=== PATIENT | female | born 1990 | race Hispanic/Latino ===

== ENCOUNTER 2019-03-30 11:58 | Inpatient (IN) | payer BC ==
[2019-03-30] MEDS ORDERED: Ondansetron PF 4 MG/2 ML Vial IVP PRN ×2 (12:17→21:36)
[2019-03-30] MEDS ORDERED: Butorphanol Tartrate 1 MG/ML VIAL SLOW IVP PRN (12:17)
[2019-03-30] MEDS ORDERED: Carboprost 250 MCG/ML AMP IM PRN (12:17)
[2019-03-30] MEDS ORDERED: Acetaminophen 500 MG TAB PO PRN (12:17)
[2019-03-30] MEDS ORDERED: HYDROcodone/Acetaminophen 5/325 mg Tablet PO PRN ×4 (12:17→21:36)
[2019-03-30] MEDS ORDERED: Docusate 100 MG CAP PO PRN (12:17)
[2019-03-30] MEDS ORDERED: Misoprostol 200 MCG TAB PR PRN (12:17)
[2019-03-30] MEDS ORDERED: Lidocaine 1% (PF) 30 ML VIAL SC PRN (12:17)
[2019-03-30] MEDS ORDERED: Promethazine HCl 25 MG/ML VIAL IM PRN ×2 (12:17→21:36)
[2019-03-30] MEDS ORDERED: Zolpidem Tartrate 5 MG TAB PO PRN ×2 (12:17→21:36)
[2019-03-30] MEDS ORDERED: hydrALAZINE 20 MG/ML VIAL SLOW IVP PRN ×2 (12:17→21:36)
[2019-03-30] MEDS ORDERED: Ibuprofen 800 MG TAB PO PRN (12:17)
[2019-03-30] MEDS ORDERED: Diphenoxylate HCl/Atropine Tablet PO PRN ×2 (12:17)
[2019-03-30] MEDS ORDERED: Methylergonovine 0.2 MG/ML VIAL IM PRN ×2 (12:17→21:36)
--- NOTE | 2019-03-30 12:23 | PDOC.LDHP ---
Labor and Delivery H&P HPI: 28 y/o at 38 weeks and 6/7 who presents to clinic with cervical dilitation of 4-5 cm and irregular contractions/pressure. Patient lives in [place], [place]. Will admit for early labor. Epidural not desired. GBS Neg. Current gestational age (weeks): 38 Due date: 04/07/19 Grav: 4 Para: 2 Current complications: none Abnormal US findings: No Current medications: pre-taylor vitamins Previous surgical history: none Social history: none - Physical Exam Vital signs reviewed and normal: yes General: NAD, resting Heart: RRR Lungs: CTAB Abdomen: gravid Extremeties: no edema FHT: category 1 - Assessment L&D Assessment: term patient in labor - Plan Plan: admit to L&D
[2019-03-30] MEDS ORDERED: NS w/ Oxytocin 10 units 500 ML IV SCH ×2 (12:30)
[2019-03-30 13:04] VITALS: BMI 28.3
[2019-03-30] MEDS: Lactated Ringer's 1,000 ML IV SCH ×2 (17:37→18:17)
[2019-03-30 18:05] LABS: Hemoglobin 10.3 g/dL (12.0-16.0); Mean Corpuscular Hemoglobin 27.3 pg (27.0-31.0); Mean Corpuscular Volume 80.4 fL (78.0-98.0); Mean Platelet Volume 10.5 fL (7.4-10.4); Platelet Count 233 thou/uL (130-400); RBC Distribution Width 13.6 % (11.5-14.5); Red Blood Cell (RBC) Count 3.78 mill/uL (4.20-5.40); White Blood Cell (WBC) Count 13.2 thou/uL (4.8-10.8)
[2019-03-30 18:37] LABS: Hep B Surf Ag Non-Reactive S/CO (NonReactive); Syphilis Antibody Nonreactive (Nonreactive); Syphilis Antibody Index 0.04 S/CO (<1.00 Non-Reactive)
[2019-03-30] MEDS: NS / Oxytocin 40 units/1000ml 1,000 ML IV PRN ×2 (19:12→20:35)
[2019-03-30] MEDS ORDERED: Bisacodyl 10 MG SUPP PR PRN (21:36)
[2019-03-30] MEDS ORDERED: diphenhydrAMINE 25 MG CAP PO PRN (21:36)
[2019-03-30] MEDS ORDERED: Lanolin Ointment 7 GM TUBE TOP PRN (21:36)
[2019-03-30] MEDS ORDERED: Benzocaine-Menthol 82.5 ML CAN TOP PRN (21:36)
[2019-03-30] MEDS ORDERED: Milk Of Magnesia 30 ML UDCUP PO PRN (21:36)
[2019-03-30] MEDS ORDERED: Misoprostol 200 MCG TAB VAG PRN (21:36)
[2019-03-30] MEDS ORDERED: NS / Oxytocin 40 units/1000ml 1,000 ML IV SCH (21:36)
[2019-03-30] MEDS ORDERED: Preparation H Ointment 57 gram tube RC PRN (21:36)
[2019-03-30] MEDS ORDERED: Docusate Calcium (SURFAK) 240 MG CAP PO SCH (21:45)
[2019-03-30] MEDS: Ibuprofen 800 MG TAB PO SCH (23:02)
[2019-03-31] MEDS: Ibuprofen 800 MG TAB PO SCH ×3 (05:23→21:34)
[2019-03-31 05:52] LABS: Hemoglobin 8.7 g/dL (12.0-16.0); Mean Corpuscular HGB CONC 34.5 g/dL (32.0-36.0); Mean Corpuscular Hemoglobin 27.9 pg (27.0-31.0); Mean Corpuscular Volume 80.9 fL (78.0-98.0); Mean Platelet Volume 10.7 fL (7.4-10.4); Platelet Count 188 thou/uL (130-400); RBC Distribution Width 13.6 % (11.5-14.5); Red Blood Cell (RBC) Count 3.11 mill/uL (4.20-5.40); White Blood Cell (WBC) Count 14.9 thou/uL (4.8-10.8)
[2019-03-31] MEDS ORDERED: Varicella virus, LIVE 0.5 ML VIAL SC ONE (09:00)
[2019-03-31] MEDS ORDERED: Adacel (T-DAP) 0.5 ML SYRINGE IM ONE (09:00)
[2019-03-31] MEDS ORDERED: Measles/Mumps/Rubella 10 MCG/0.5 ML VIAL SC ONE (09:00)
[2019-03-31] MEDS: Prenatal Vitamin 1 TAB PO SCH (09:17)
[2019-03-31] MEDS: Docusate Calcium (SURFAK) 240 MG CAP PO SCH ×2 (09:17→21:33)
[2019-03-31] MEDS: Ferrous Sulfate 325 MG TAB PO SCH ×2 (09:17→17:50)
--- NOTE | 2019-03-31 19:47 | PDOC.PP ---
Post Progress Note Post Day #: 1 PO intake tolerated: yes Flatus: yes Ambulation: yes Vital Signs (12 hours) Temp Pulse Resp BP Pulse Ox 03/31/19 17:17 99.0 F 83 12 121/56 L 98 03/31/19 11:46 98.7 F 80 20 112/59 L 03/31/19 08:26 98.2 F 60 20 130/72 95 Weight Weight 160 lb - Physical Examination General: NAD Cardiovascular: no m/r/g, RRR Respiratory: clear to auscultation bilaterally, non-labored breathing Abdominal: + bowel sounds, lochia, no distention, appropriately TTP Extremities: negative homans (B) Skin: CS incision dry & intact, no rash Neurological: no gross focal deficits Psychiatric: A&Ox3, normal affect (DC tomorrow) Result Diagrams: 03/31/19 05:34 Additional Labs: Post Labs Blood Type O POSITIVE 03/30/19 17:55 Hep Bs Antigen Non-Reactive S/CO (NonReactive) 03/30/19 17:41
[2019-04-01 00:13] VITALS: BP 117/67
--- NOTE | 2019-04-01 00:52 | DN ---
DATE OF PROCEDURE: 03/30/2019 TIME OF SERVICE: 1902 Central Standard Time. PREOPERATIVE DIAGNOSIS: Intrauterine at 38 weeks and 6 days with spontaneous onset of labor. POSTOPERATIVE DIAGNOSIS: Intrauterine at 38 weeks and 6 days with spontaneous onset of labor. PROCEDURE PERFORMED: Spontaneous vaginal delivery over first-degree laceration of the perineum. FINDINGS: Viable male infant, weighing 3314 g or 7 pounds 5 ounces. Apgars of 9 and 9. QUANTITATIVE BLOOD LOSS: 119 mL. COMPLICATIONS: None. PROCEDURE IN DETAIL: The patient presented to [facility] where she was admitted to the labor and delivery service. The patient underwent a normal and uneventful labor with normal cervical dilatation until she was found to be completely dilated. She was then allowed to push and was able to bring the baby down and delivered the baby in a vertex presentation without difficulties. Once the head delivered in occiput anterior position, the shoulders followed spontaneously along with the rest of the baby's body. Once out the baby's mouth and nose were bulb suctioned. The cord was clamped and cut and baby was handed to waiting attendants. Cord blood was collected. Gentle fundal massage was performed and the placenta delivered intact without problems. Hemostasis was assured. Quantitative blood loss was calculated. Inspection of the cervix, vaginal vault, and perineum did not reveal any lacerations needing suturing. Once again, hemostasis was within normal limits and the patient was allowed to recover in the labor and delivery room. Baby went to nursery. Job ID: [id number]
[2019-04-01] MEDS: Ibuprofen 800 MG TAB PO SCH ×2 (05:24→14:38)
[2019-04-01] MEDS: Docusate Calcium (SURFAK) 240 MG CAP PO SCH (08:08)
[2019-04-01] MEDS: Ferrous Sulfate 325 MG TAB PO SCH (08:08)
[2019-04-01] MEDS: Prenatal Vitamin 1 TAB PO SCH (08:08)
[2019-04-01 08:20] VITALS: TEMP 97.9
== END 2019-04-01 17:00 | disposition home or self-care (01) | DRG 807 ==
LOC: L&D/OP 11:58 → L&D 19:12 → 3SW 22:10
PROVIDERS: ADMIT Obstetrics & Gynecology; ATTEND Obstetrics & Gynecology
PROC: 10E0XZZ Delivery of Products of Conception, External Approach (ICD-10-PCS; principal; 2019-03-30)
DX: O70.0 First degree perineal laceration during delivery (principal); Z37.0 Single live birth; Z3A.38 38 weeks gestation of pregnancy
CPT/HCPCS: 36415; 85027; 86780; 86850; 86900; 86901; 87340; 99285; J2001